=== PATIENT | female | born 1975 | race Two or more races ===

== ENCOUNTER 2020-05-28 12:02 | Emergency (ER) | payer OTHER ==
[~2020-05-28] VITALS: Ht 152.4 cm; Wt 108.4 kg
[2020-05-28 12:15] VITALS: BP 119/57
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
[2020-05-28] MEDS: IBUPROFEN 600 MG TABLET. PO ONE (12:44)
--- NOTE | 2020-05-28 12:58 | RAD ---
Examination: HAND RIGHT 3V History: pain closed in a door / Comparison/Correlation: None Findings: 3 view right hand x-rays was performed. Joint spaces are normal. No acute fracture or bone destruction. Soft tissues are unremarkable. Impression: No suspicious process. Electronically signed by: Kalia Galvin MD (05/28/2020 12:55 PM) [id number]
== END 2020-05-28 13:10 | disposition home or self-care (01) ==
LOC: ER 12:19
DX: S60.221A Contusion of right hand, initial encounter (principal); Z95.1 Presence of aortocoronary bypass graft; Z88.5 Allergy status to narcotic agent; Z88.8 Allergy status to other drugs, medicaments and biological substances; Y28.8XXA Contact with other sharp object, undetermined intent, initial encounter; Y93.89 Activity, other specified; Y92.89 Other specified places as the place of occurrence of the external cause; Y99.8 Other external cause status
CPT/HCPCS: 73130; 99283

== ENCOUNTER 2020-09-08 01:06 | Emergency (ER) | payer OTHER ==
[~2020-09-08] VITALS: Ht 152.4 cm; Wt 104.0 kg
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
[2020-09-08 01:16] VITALS: BP 130/71
--- NOTE | 2020-09-08 01:50 | RAD ---
Left ankle x-rays 3 views HISTORY: Left ankle injury. FINDINGS: No fracture. No dislocation. No talus osteochondral lesion. There is mild edema of the calf and ankle. Mild bone spurring of the anterior tibial plafond. IMPRESSION: No acute osseous injury. Soft tissue edema and swelling of the lower calf and ankle. Left foot x-rays 3 views HISTORY: Left foot injury, pain. FINDINGS: No fracture. No dislocation. Soft tissues are unremarkable. Small bony spur of the anterior tibial plafond at the ankle. IMPRESSION: No acute osseous injury. Electronically signed by: Jaya Orozco MD (09/08/2020 1:48 AM) [facility]
[2020-09-08] MEDS ORDERED: HYDROcodon/IBUPROFEN 7.5/200MG 1 TAB TABLET PO ONE (02:00)
[2020-09-08] MEDS ORDERED: HYDR-1179 PO (02:16)
[2020-09-08] MEDS ORDERED: KETOROLAC 60 MG/2 ML VIAL. IM ONE (02:32)
== END 2020-09-08 02:36 ==
LOC: ER 01:06
DX: S93.602A Unspecified sprain of left foot, initial encounter (principal); S93.402A Sprain of unspecified ligament of left ankle, initial encounter; Z88.6 Allergy status to analgesic agent; W22.8XXA Striking against or struck by other objects, initial encounter; Y93.89 Activity, other specified; Y92.89 Other specified places as the place of occurrence of the external cause; Y99.8 Other external cause status
CPT/HCPCS: 73610; 73630; 96372; 99284

== ENCOUNTER 2021-11-03 00:26 | Emergency (ER) | payer OTHER ==
[~2021-11-03] VITALS: Ht 152.4 cm; Wt 96.6 kg
[~2021-11-03 00:26] MED LIST: HYDR-1179 PO
[2021-11-03] MEDS ORDERED: HYDROcodone/APAP 7.5/325MG 1 TAB TABLET PO ONE (01:00)
--- NOTE | 2021-11-03 01:03 | PHYS DOC ---
Past History Past Medical History: No Pertinent History Additional Past Medical Histor: back pain Past Surgical History: Cholecystectomy, , Gastric Bypass, Hysterectomy, Tonsillectomy Additional Past Surgical Histo: LOWER BACK, LEFT FOOT Alcohol Use: None General Adult EDM: Chief Complaint: MECHANICAL FALL HPI: HPI: Patient is a 46-year-old female coming in after a fall at work. Patient says she was walking down the stairs when she missed the last 2 and fell onto concrete onto her left side. No loss of conscious. States she did hit her head. Complaining of pain in head, neck, left hip, and left ankle. Patient states she had a prior surgery on her left ankle due to an avulsion fracture Review of Systems: Review of Systems: All other systems within normal limits except for as noted in the HPI Current Medications: Current Meds: Current Medications Medications (Trade) Dose Ordered Sig/Brittany Start Time Stop Time Status Last Admin Dose Admin Acetaminophen/ Hydrocodone Bitart (Lortab 7.5/325) 1 tab 1X ONCE 11/03/21 01:00 11/03/21 01:01 UNV Allergies: Allergies: Allergies Coded Allergies Type Severity Reaction Last Updated Verified naproxen Allergy Unknown 11/03/21 Yes Uncoded Allergies Type Severity Reaction Last Updated Verified STEROIDS Allergy Unknown 05/28/20 Physical Exam: PE: Constitutional: Well developed, well nourished, no acute distress, non-toxic appearance. [] HENT: Normocephalic, atraumatic, bilateral external ears normal, nose normal. [] Eyes: PERRLA, conjunctiva normal, no discharge. [] Neck: No rigidity, supple, no stridor. Mid C-spine tenderness, no step-off or deformity [] Cardiovascular: Regular rate and rhythm, brisk cap refill [] Lungs & Thorax: Non labored symmetric respirations, no tachypnea or respiratory distress [] Abdomen: Soft, nondistended. Skin: Warm, dry, no erythema, no rash. [] Back: Unremarkable Extremities: No deformities, range of motion grossly intact, no lower extremity edema. Left ankle tenderness over lateral malleolus and with tib-fib squeeze. No foot calcaneal or fifth metatarsal tenderness [] Neurologic: Alert and oriented X 3, no focal deficits noted. [] Psychologic: Affect normal, judgement normal, mood normal. [] Current Patient Data: Vital Signs: Vital Signs Date Time Temp Pulse Resp B/P (MAP) Pulse Ox O2 Delivery O2 Flow Rate FiO2 11/03/21 00:39 98.2 75 18 98 Room Air EKG: EKG: [] Radiology/Procedures: Radiology/Procedures: CT head and C-spine negative for acute fracture or injury. [] Heart Score: C/O Chest Pain: No Risk Factors: Risk Factors: DM, Current or recent (<one month) smoker, HTN, HLP, family history of CAD, obesity. Risk Scores: Score 0 - 3: 2.5% MACE over next 6 weeks - Discharge Home Score 4 - 6: 20.3% MACE over next 6 weeks - Admit for Clinical Observation Score 7 - 10: 72.7% MACE over next 6 weeks - Early Invasive Strategies Course & Med Decision Making: Course & Med Decision Making Pertinent Labs and Imaging studies reviewed. (See chart for details) [] Dragon Disclaimer: Dragon Disclaimer: This electronic medical record was generated, in whole or in part, using a voice recognition dictation system. Departure Departure: Impression: Primary Impression: Fall Disposition: 01 HOME / SELF CARE / HOMELESS Condition: STABLE Referrals: DARSHANA MCCULLOUGH MD (PCP) Patient Instructions: Fall Prevention and Home Safety Scripts Cyclobenzaprine Hcl (CYCLOBENZAPRINE HCL) 5 Mg Tablet 1 TAB PO PRN Q8HRS PRN for MUSCLE PAIN for 5 Days, #15 TAB Prov: JESS WHITE MD 11/03/21 JESS WHITE MD November 03, 2021 01:03
[2021-11-03] MEDS ORDERED: CYCL5TAB PO (02:39)
[2021-11-03] MEDS ORDERED: HYDROmorphone PF 2 MG/ML VIAL IM ONE (02:45)
[2021-11-03 02:48] VITALS: BP 123/75
--- NOTE | 2021-11-03 09:41 | RAD ---
EXAM: Head and cervical spine CT without contrast. HISTORY: Fall. Pain. TECHNIQUE: Computed tomographic images of the head and cervical spine were obtained without contrast. *One or more of the following individualized dose reduction techniques were utilized for this examina tion: 1. Automated exposure control. 2. Adjustment of the mA and/or kV according to patient size. 3. Use of iterative reconstruction technique. COMPARISON: None. FINDINGS: Head: There is no hemorrhage. There is no mass effect or midline shift. There is no hydrocephalus. Th e jaimes-white matter differentiation pattern is intact. The orbits, paranasal sinuses mastoid air cell s are unremarkable. There is no suspicious calvarial lesion. Cervical spine: There is cervical kyphosis due to patient positioning. There is no listhesis. There i s mild multilevel endplate remodeling. No acute fracture is seen. There is mild facet and uncovertebr al arthropathy at multiple levels. This results in mild right foraminal stenosis at C3-C4 and C4-C5. The lung apices are unremarkable. IMPRESSION: No acute intracranial finding or evidence of acute cervical spine trauma. Electronically signed by: Anjali Poole MD (11/03/2021 9:38 AM) [facility]
--- NOTE | 2021-11-03 10:04 | RAD ---
Exam Date: 11/03/2021 1:17 AM XR PELVIS 1-2V Indication: Pain. Reason: fall, left hip pain / Spl. Instructions: / History: . FINDINGS/ IMPRESSION: Chronic calcifications are seen overlapping the lateral aspect of the right acetabulum, nonspecific. No acute fracture or dislocation. Mild degenerative changes seen in the hips bilaterally. Alignment is maintained. The soft tissues are within normal limits. Electronically signed by: Mk Silva MD (11/03/2021 10:02 AM) [id number]
--- NOTE | 2021-11-03 10:05 | RAD ---
Exam Date: 11/03/2021 1:17 AM XR EXAM OF ANKLE_LEFT 3V Indication: Pain. Reason: fall, left lateral ankle pain / Spl. Instructions: / History: . COMPARISON: September 08, 2020 FINDINGS/ IMPRESSION: Ankle mortise is intact. There is mild diffuse soft tissue edema. Mild calcaneal enthesopathy is pr esent. Mild degenerative changes are noted. Alignment is maintained. No acute fracture or dislocat ion. Electronically signed by: Mk Silva MD (11/03/2021 10:03 AM) [id number]
== END 2021-11-03 02:57 | disposition home or self-care (01) ==
LOC: ER 00:26
DX: M54.2 Cervicalgia (principal); M25.552 Pain in left hip; M25.572 Pain in left ankle and joints of left foot; Z90.49 Acquired absence of other specified parts of digestive tract; Z90.89 Acquired absence of other organs; Z90.710 Acquired absence of both cervix and uterus; W19.XXXA Unspecified fall, initial encounter; Y93.89 Activity, other specified; Y92.89 Other specified places as the place of occurrence of the external cause; Y99.8 Other external cause status
CPT/HCPCS: 70450; 72125; 72170; 73610; 96372; 99284; J1170